=== PATIENT | male | born 1950 | race Caucasian/White ===

== ENCOUNTER 2018-12-30 07:59 | Emergency (ER) | payer MEDICARE ==
[2018-12-30] MEDS ORDERED: Adacel (T-DAP) 0.5 ML SYRINGE ONE ×2 (08:18→08:19)
[2018-12-30 08:55] LABS: #Eosinphils 0.2 thou/uL (0.0-0.7); #Lymphocytes 1.4 thou/uL (1.20-3.40); #Monocytes 0.4 thou/uL (0.11-0.59); #Neutrophils 4.3 thou/uL (1.40-6.50); %Basophils 0.7 % (0.0-1.0); %Eosinophils 2.6 % (0.0-10.0); %Lymphocytes 22.3 % (21.0-51.0); %Monocytes 6.7 % (0.0-10.0); %Neutrophils 67.7 % (42.0-75.0); Hemoglobin 13.2 g/dL (14.0-18.0); Mean Corpuscular HGB CONC 34.4 g/dL (32.0-36.0); Mean Corpuscular Hemoglobin 33.2 pg (27.0-31.0); Mean Corpuscular Volume 96.4 fL (78.0-98.0); Mean Platelet Volume 8.3 fL (7.4-10.4); Platelet Count 203 thou/uL (130-400); RBC Distribution Width 11.3 % (11.5-14.5); Red Blood Cell (RBC) Count 3.98 mill/uL (4.70-6.10); White Blood Cell (WBC) Count 6.3 thou/uL (4.8-10.8)
[2018-12-30 09:16] LABS: ALT (SGPT) 22 U/L (8-55); AST (SGOT) 19 U/L (5-34); Albumin 3.8 g/dL (3.4-4.8); Alkaline Phosphatase 54 U/L (40-150); Anion Gap 14 mmol/L (10-20); BUN (Urea Nitrogen) 24 mg/dL (8.4-25.7); Bilirubin, Total 0.6 mg/dL (0.2-1.2); Calc. Creatinine Clearance 0 mL/min (70-130); Calcium 8.8 mg/dL (7.8-10.44); Carbon Dioxide 23 mmol/L (23-31); Chloride 103 mmol/L (98-107); Estimated GFR-MDRD 74; Globulin 2.5 g/dL (2.4-3.5); Glucose 213 mg/dL (80-115); Lipase 34 U/L (8-78); Potassium 4.3 mmol/L (3.5-5.1); Protein, Total 6.3 g/dL (5.8-8.1); Sodium 136 mmol/L (136-145)
--- NOTE | 2018-12-30 09:33 | CT ---
EXAM: CT of the cervical spine without contrast HISTORY: Neck pain after fall COMPARISON: None TECHNIQUE: Multiple contiguous axial images were obtained in a CT of the cervical spine without contr ast. Sagittal and coronal reformats were performed. FINDINGS: The vertebral bodies and intervertebral discs demonstrate normal height and alignment witho ut fracture or subluxation. Moderate degenerative changes are present. No prevertebral soft tissue swelling is seen. The posterior facets are well aligned. Normal alignment of the skull base with the cervical spine is seen. The lung apices and cervical soft tissues are unremarkable. IMPRESSION: No evidence of acute osseous abnormality of the cervical spine.
--- NOTE | 2018-12-30 09:34 | CT ---
Head CT without contrast 12/30/2018: HISTORY: Fall, trauma, pain TECHNIQUE: Axial CT imaging at 5 mm intervals from vertex through skull base without contrast FINDINGS: Imaged paranasal sinuses and mastoid air cells are well aerated. No displaced calvarial fra cture. No intracranial hemorrhage, midline shift, mass effect, or ventricular enlargement. The study is slightly limited on the basis of motion artifact at the axial level of the C1 ring. IMPRESSION: No intracranial hemorrhage.
--- NOTE | 2018-12-30 09:54 | CT ---
CT of the chest, abdomen, and pelvis: 12/30/2018 COMPARISON: None HISTORY: Fall, trauma, pain TECHNIQUE: Axial CT imaging at 5 mm intervals from thoracic inlet through pubic symphysis with IV con trast. Coronal and sagittal reformatted imaging obtained. FINDINGS: There is no lymphadenopathy in the chest. There is extensive coronary arterial calcification and/or stent material. There is no pleural, pericardial, or mediastinal fluid seen. The vascular structures of the chest appear patent. There is no pneumothorax seen on either side. No acute pulmonary parenchymal abnormality noted. No endobronchial lesion is seen. The extraspinal osseous structures of the chest demonstrate no acute findings. There is a probable old posterior right 11th rib fracture. No free intraperitoneal air or fluid is seen. The liver, spleen, pancreas, adrenal glands, gallbladder, and kidneys demonstrate no acute findings. Calcified gallstones are noted within the gallbladder lumen. There are areas of coarse calcification noted peripherally involving the spleen and the right lobe of the liver. There is no lymphadenopathy noted within the abdomen or the pelvis. There is a fat-containing inguinal hernia present on the left. There is atherosclerotic calcification of the infrarenal abdominal aorta and the arterial structures of the pelvis. Review of the osseous structures demonstrates no evidence for an acute fracture or dislocation within the pelvis. There is no evidence for acute fracture or dislocation involving the thoracic or the lumbar spine. There is multilevel lower lumbar spine facet hypertrophic change. IMPRESSION: No acute posttraumatic findings within the chest, abdomen, or pelvis. Incidental findings as detailed above.
--- NOTE | 2018-12-30 10:14 | RAD ---
LEFT ELBOW 4 VIEWS: Date: 12/30/18 HISTORY: Pain. COMPARISON: None. FINDINGS: Chronic medial and lateral epicondylitis. No significant joint effusion. Mild medial compartment join t space narrowing with osteophyte formation. No acute displaced fracture. IMPRESSION: 1. Chronic medial and lateral epicondylitis. 2. Old injury of the ulnar collateral ligament with ossification. 3. No acute fracture. POS: CET
[2018-12-30] MEDS ORDERED: Acetaminophen 500 MG TAB ONE (10:24)
[2018-12-30] MEDS ORDERED: ISOVUE-370 76%-LOCM 1 ML ONE (10:46)
[2018-12-30 11:24] LABS: Bilirubin Negative (Negative); Blood, Urine Negative (Negative); Clarity Clear (Clear); Glucose, Urine (Dipstick) Greater than 1000 mg/dL (Negative); Leukocyte Negative Leu/uL (Negative); Nitrite Negative (Negative); Protein, Urine (Dipstick) 20 mg/dL (Neg-Trace)
== END 2018-12-30 12:16 | disposition home or self-care (01) ==
LOC: ERS 07:59
DX: S09.90XA Unspecified injury of head, initial encounter (principal); S50.02XA Contusion of left elbow, initial encounter; E11.9 Type 2 diabetes mellitus without complications; Z95.5 Presence of coronary angioplasty implant and graft; Z79.84 Long term (current) use of oral hypoglycemic drugs; Z79.899 Other long term (current) drug therapy; W17.89XA Other fall from one level to another, initial encounter
CPT/HCPCS: 36415; 70450; 71260; 72125; 74177; 80053; 81003; 83690; 85025; 90471; 90715; 93005; 94760; Q9966